=== PATIENT | female | born 1975 | race Two or more races ===

== ENCOUNTER 2025-02-03 11:44 | Outpatient (RCR) | payer MEDICAID, SELFPAY ==
[2025-02-03 12:21] LABS: HCG Qualitative,Urine Negative
--- NOTE | 2025-02-03 12:30 | XR_ITS ---
Examination: DANILO, hepatobiliary radioisotope scan Gallbladder ejection fraction study. Date and time of exam: February 03, 2025 1224 hours INDICATIONS: Fatty liver diagnosis Technique: 5.7 mCi of 99M Hepatolite administered. Serial imaging then obtained from immediate through 60 minutes. 1.6 mcg selective catheter Kinevac administered for gallbladder ejection fraction study. Findings: Radioisotope activity within the liver is reasonably homogenous. Gallbladder, common bile duct small bowel activity noted Impression: Gallbladder activity Abnormal gallbladder ejection fraction, 9%, normal greater than 35%
== END 2025-02-08 23:59 | disposition home or self-care (01) ==
LOC: SNUC 11:44
PROVIDERS: PCP Licensed Vocational Nurse; Referring Provider Licensed Vocational Nurse; Visit Provider Licensed Vocational Nurse
DX: R93.2 Abnormal findings on diagnostic imaging of liver and biliary tract (principal)
CPT/HCPCS: 78227; 81025; A9537; J2805